=== PATIENT | female | born 1945 | race American Indian/Alaskan Native ===

== ENCOUNTER 2017-07-08 08:27 | Outpatient (CLI) | payer MEDICARE ==
--- NOTE | 2017-07-08 09:07 | XRay Report ---
XRAY LEFT KNEE 4 THREE VIEWS: 07/08/17 CLINICAL: Left knee pain. FINDINGS: Mild osteopenia. Osteoarthritis of the medial joint space with loss of the joint space and large osteophytes. Slight widening of the lateral joint space with small osteophytes. Patellofemoral osteophytes and joint space narrowing. No fracture or dislocation.No joint effusion.Normal soft tissues. IMPRESSION: Osteoarthritis with greatest involvement of the medial knee joint space and patellofemoral joint.
== END 2017-07-08 08:28 | disposition home or self-care (01) ==
LOC: SPVIMAG 08:27
PROVIDERS: ATTEND Orthopaedic Surgery Sports Medicine
DX: M17.12 Unilateral primary osteoarthritis, left knee (principal); M85.862 Other specified disorders of bone density and structure, left lower leg

== ENCOUNTER 2020-02-06 06:25 | Day surgery (SDC) | payer MEDICARE ==
[2020-02-06] MEDS ORDERED: SODIUM CHLORIDE 0.9% 500 ML 500 ML ONE (07:05)
[2020-02-06] MEDS ORDERED: ASPIRIN EC 325 MG TAB PO ONE ×2 (07:05→08:00)
[2020-02-06] MEDS: SODIUM CHLORIDE 0.9% 500 ML 500 ML IV SCH ×2 (07:22→08:45)
[2020-02-06] MEDS ORDERED: MIDAZOLAM 2 MG/2 ML INJ ONE (08:12)
[2020-02-06] MEDS ORDERED: HEPARIN/NS 5000 UNIT/500ML 1,000 ML IR ONE (08:12)
[2020-02-06] MEDS ORDERED: fentaNYL 100 MCG/2 ML INJ ONE (08:13)
[2020-02-06] MEDS ORDERED: LIDOCAINE (2%) 20 MG/1 ML VIAL 20 ML MDV INFILTRATI ONE (08:13)
[2020-02-06] MEDS ORDERED: VERAPAMIL 5 MG/2 ML INJ ONE (08:13)
[2020-02-06] MEDS: HEPARIN 10,000 UNITS/10 ML VIAL ONE ×2 (09:01→09:03)
[2020-02-06] MEDS: NITROGLYCERIN SYRINGE 3 ML ONE ×2 (09:02→09:03)
--- NOTE | 2020-02-06 09:36 | Short Stay Summary ---
Short Stay Documentation Date of service: 02/06/20 - History H&P: obtained from office - Allergies and Medications Current Medications: Allergies No Known Allergies Allergy (Unverified 02/06/20 06:54) Home Medications Medication Instructions Recorded Confirmed Last Taken Type Aspirin [Adult Aspirin] 81 mg PO DAILY 02/06/20 02/06/20 02/05/20 History ISOSORBIDE MONOnitrate [Imdur ER] 30 mg PO DAILY 02/06/20 02/06/20 02/06/20 05:30 History Ipratropium (Nf) [Atrovent HFA 2 puff IH PRN PRN 02/06/20 02/06/20 Unknown History 17MCG/PUFF] Linaclotide [Linzess] 145 mcg PO QDAY 02/06/20 02/06/20 02/06/20 05:30 History Metoprolol [Lopressor] 25 mg PO DAILY 02/06/20 02/06/20 02/06/20 05:30 History Oxycodone HCl/Acetaminophen 1 each PO Q6HR PRN 02/06/20 02/06/20 02/05/20 History [Percocet 7.5/325 mg] Rosuvastatin Calcium [Crestor] 20 mg PO DAILY 02/06/20 02/06/20 02/06/20 05:30 History amLODIPine [Norvasc] 10 mg PO DAILY 02/06/20 02/06/20 02/06/20 05:30 History Active Medications Sodium Chloride (Nacl 0.9% 500 Ml) 500 mls @ 50 mls/hr IV DIRECT LEIGHANN Stop: 02/06/20 17:59 Last Admin: 02/06/20 08:45 Dose: 50 mls/hr Documented by: - Brief post op/procedure progress note Date of procedure: 02/06/20 Pre-op diagnosis: abnormal stress test Post-op diagnosis: other (nonobstructive CAD) Procedure: LHC - see dictated cath report Anesthesia: local Estimated blood loss: none Condition: stable - Disposition Condition at discharge: Good Disposition: -01 TO HOME OR SELFCARE - Discharge Diagnoses (1) 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
--- NOTE | 2020-02-06 09:49 | Cardiac Catherization Report ---
CARDIAC CATHETERIZATION REFERRING PHYSICIAN: Dr. Karen Baird MD INDICATION FOR PROCEDURE: The patient is a pleasant 74-year-old -[place] female with a history of tobacco abuse, peripheral vascular disease, dyspnea, abnormal stress test, referred for left heart catheterization. Risks, benefits, potential alternatives, explained to the patient prior to obtaining informed consent. PROCEDURE IN DETAIL: The patient brought to the cath lab radiological technologist in a postabsorptive state, prepped and draped in sterile fashion. Nicolas's test in right hand was normal. A 2 mL of 2% lidocaine used to anesthetize the right wrist. A standard 6-Urdu hydrophilic sheath used to cannulate the right radial artery via modified Seldinger technique. All exchanges performed to exchange a J-tip guidewire. JL3.5 catheter was used to engage the left main. No dampening or vegetations. Cineangiography performed in all projections. JR4 catheter used to cross the aortic valve under fluoroscopic guidance. Left ventriculography was performed in 30 [place] projections via hand injections, catheter flushed. Manual pullback performed with continuous pressure monitoring. Catheter used to engage the right coronary. No dampening or vegetations. Cineangiography performed in all projections. Next, catheter removed from the body of wire, sheath removed. Manual pressure used to achieve hemostasis. Prior to removing sheath, we did a root aortogram in the [place] projection with the power injector due to recurrent symptoms and known peripheral vascular disease and hypertension. I directly supervised the administration of moderate sedation with fentanyl and Versed from 8:55 a.m. to 9:30 a.m. DATA: Aortic pressure is 150/80, LV pressure is 150, LVP of 15 mmHg. Left ventriculography reveals normal systolic performance with estimated ejection fraction of 55-60%. No evidence of aortic stenosis. CORONARY ANATOMY: This is a right dominant system. Left main without significant disease, bifurcates in left anterior descending and left circumflex. Diffuse scattered luminal irregularities. Left main without significant disease, bifurcates in left anterior descending and left circumflex. LAD is a moderate sized vessel, courses anterior intergroove, wraps around the apex. A 25% proximal LAD stenosis, otherwise no significant disease noted. Left circumflex is a moderate sized vessel with mild diffuse ectasia noted. No obstructive disease identified. SUELLEN 3 flow throughout the left system. Right coronary is a moderate sized vessel, courses AV groove, distally bifurcates into posterior and posterolateral branches. No discrete stenoses identified, scattered luminal irregularities. Root aortography reveals normal contour, no evidence of dissection, penetrating aortic ulcer, or aortic insufficiency, normal great vessel anatomy. The patient continues to smoke. Discussed smoking cessation with the patient for some 5 minutes. CONCLUSIONS: 1. Gern-[id number] nonobstructive coronary artery disease in this right dominant system, 25% proximal left anterior descending stenosis and itli-tm-[id number] ectasia in the circumflex system, but again, no obstructive disease identified. SUELLEN 3 flow throughout the coronary tree. Normal left ventricular systolic performance, estimated ejection fraction of 55-60%. 2. No evidence of aortic stenosis. 3. Normal LVEDP. 4. Root aortography without evidence of dissection, penetrating aortic ulcer, or aortic insufficiency. Aggressive risk factor modification, tobacco abuse, cessation discussed. Standard radial care. Results of procedure explained to the patient and her daughter, Edwina via telephone. She will return for peripheral vascular angiography electively given claudicant symptoms. Continue current medications including Imdur, statin and beta blockade, will be on a baby aspirin as well. Follow up with Dr. Baird in the office. JOB# [id number] SBM/NTS
[2020-02-06 15:16] VITALS: BP 127/72
== END 2020-02-06 13:00 | disposition home or self-care (01) ==
LOC: CATHLABREC 06:25
PROVIDERS: ATTEND Internal Medicine
DX: R94.39 Abnormal result of other cardiovascular function study (principal); R06.09 Other forms of dyspnea; I25.10 Atherosclerotic heart disease of native coronary artery without angina pectoris; F17.210 Nicotine dependence, cigarettes, uncomplicated; I73.9 Peripheral vascular disease, unspecified; E78.00 Pure hypercholesterolemia, unspecified; I10 Essential (primary) hypertension; J45.909 Unspecified asthma, uncomplicated; M19.90 Unspecified osteoarthritis, unspecified site; Z96.652 Presence of left artificial knee joint; Z79.899 Other long term (current) drug therapy; Z79.82 Long term (current) use of aspirin; Z98.890 Other specified postprocedural states
CPT/HCPCS: 93005; 93458; 93567; 99156; 99157; C1894; J1644; J2250; J3010; J7040; Q9967

== ENCOUNTER 2020-02-28 05:55 | Day surgery (SDC) | payer MEDICARE ==
[2020-02-28 07:03] LABS: Basophils % (Auto) 0.3 % (0.0-1.8); Eosinophils # (Auto) 0.1 K/mm3 (0.0-0.4); Eosinophils % (Auto) 1.2 % (0.0-4.3); Hematocrit 36.7 % (30.3-42.9); Hemoglobin 12.2 gm/dl (10.1-14.3); Lymphocytes % (Auto) 36.2 % (13.4-35.0); Mean Corpuscular HGB Conc 33 % (30-34); Mean Corpuscular Volume 90 fl (79-97); Monocytes # (Auto) 0.7 K/mm3 (0.0-0.8); Monocytes % (Auto) 11.9 % (0.0-7.3); Platelet Count 161 K/mm3 (140-440); Red Blood Count 4.08 M/mm3 (3.65-5.03); Red Cell Distribution Width 14.5 % (13.2-15.2)
[2020-02-28 07:14] LABS: Blood Urea Nitrogen 9 mg/dL (7-17); Calcium 9.5 mg/dL (8.4-10.2); Hemolysis Index 5; Partial Thromboplastin Time 32.2 Sec. (24.2-36.6)
[2020-02-28 07:30] LABS: BUN/Creatinine Ratio 18
[2020-02-28] MEDS: SODIUM CHLORIDE 0.9% 500 ML 500 ML IV SCH ×2 (07:46→08:35)
[2020-02-28] MEDS ORDERED: HEPARIN/NS 5000 UNIT/500ML 1,000 ML IR ONE (08:09)
[2020-02-28] MEDS ORDERED: VERAPAMIL 5 MG/2 ML INJ ONE (08:10)
[2020-02-28] MEDS: MIDAZOLAM 2 MG/2 ML INJ ONE ×2 (08:29→08:40)
[2020-02-28] MEDS: fentaNYL 100 MCG/2 ML INJ ONE ×2 (08:29→08:40)
[2020-02-28] MEDS: LIDOCAINE (2%) 20 MG/1 ML VIAL 20 ML MDV INFILTRATI ONE ×3 (08:34→08:42)
[2020-02-28] MEDS: HEPARIN 10,000 UNITS/10 ML VIAL ONE ×3 (08:34→08:50)
[2020-02-28] MEDS: NITROGLYCERIN SYRINGE 3 ML ONE ×3 (08:35→08:50)
--- NOTE | 2020-02-28 09:24 | Cardiac Catherization Report ---
PERIPHERAL ANGIOGRAM REFERRING PHYSICIAN: Dr. Karen Baird INDICATION FOR PROCEDURE: The patient has known peripheral vascular disease, claudication, referred for abdominal aortography and distal abdominal aortography with computerized lower extremity runoff. PROCEDURE IN DETAIL: The patient was brought to the laboratory secretary in a postoperative state, prepped and draped in sterile fashion. Nicolas's test of the left hand is normal. A standard 6-Persian sheath used to cannulate the left radial artery via modified Seldinger technique. Pigtail catheter was placed into the proximal abdominal aorta, root aortography is performed with power injector/DSA. Next, catheter was moved distally to the distal abdominal aorta and peripheral angiography was performed with computerized runoff all the way to the feet. Next, catheter was removed from the body of wire, sheath removed. Manual pressure used to achieve hemostasis. There were no immediate complications identified. I directly supervised the administration of moderate sedation with fentanyl and Versed from 8:30 a.m. to 9:05 a.m. FINDINGS: The abdominal aorta is unremarkable, mild atheroma is noted. Patent renal arteries. No aneurysm. There is mild disease in the right common iliac approximately 20% nonocclusive left and right internal and external iliacs without disease. Common femoral arteries bilaterally are patent. The right SFA with 30-40% stenosis in the mid segment. Left SFA has 70-80% stenosis in the mid segment. Popliteals are patent bilaterally. The patient has thready but patent 1-2 vessel runoff inferior popliteal. The patient tolerated the procedure well. There were no immediate complications. Start Pletal aggressive medical management. If the patient fails this, we will consider TAX STAFF ACCOUNTANT of left SFA. Follow up with Dr. Karen Baird in the office. Aggressive primary and secondary prevention measures discussed. Standard right and left radial care discussed with the patient and family. All questions and concerns were addressed. JOB# [id number] SBM/NTS
[2020-02-28 13:18] VITALS: BP 140/70
--- NOTE | 2020-02-28 14:13 | Short Stay Summary ---
Short Stay Documentation Date of service: 02/28/20 - History H&P: obtained from office - Allergies and Medications Current Medications: Allergies No Known Allergies Allergy (Unverified 02/06/20 06:54) Home Medications Medication Instructions Recorded Confirmed Last Taken Type Aspirin [Adult Aspirin] 81 mg PO DAILY 02/06/20 02/28/20 02/27/20 History ISOSORBIDE MONOnitrate [Imdur ER] 30 mg PO DAILY 02/06/20 02/28/20 02/27/20 History Ipratropium (Nf) [Atrovent HFA 2 puff IH PRN PRN 02/06/20 02/28/20 Unknown History 17MCG/PUFF] Linaclotide [Linzess] 145 mcg PO QDAY 02/06/20 02/28/20 02/27/20 History Metoprolol [Lopressor] 25 mg PO DAILY 02/06/20 02/28/20 02/27/20 History Oxycodone HCl/Acetaminophen 1 each PO Q6HR PRN 02/06/20 02/28/20 02/27/20 History [Percocet 7.5/325 mg] Rosuvastatin Calcium [Crestor] 20 mg PO DAILY 02/06/20 02/28/20 02/27/20 History amLODIPine [Norvasc] 10 mg PO DAILY 02/06/20 02/28/20 02/28/20 04:30 History cilostazoL [Pletal] 50 mg PO BID #60 tablet 02/28/20 Unknown Rx - Brief post op/procedure progress note Date of procedure: 02/28/20 Pre-op diagnosis: PVD Post-op diagnosis: same Procedure: peripheral angiogram - see dictated cath report Anesthesia: local Estimated blood loss: none Condition: stable - Disposition Condition at discharge: Good Disposition: DC-01 TO HOME OR SELFCARE - Discharge Diagnoses (1) PVD (peripheral vascular disease) Status: Chronic Short Stay Discharge Plan Activity: advance as tolerated Diet: low fat, low cholesterol, low salt Wound: open to air, keep clean and dry, per your surgeon's advice Follow up with: YU SIMONS MD [Staff Physician] - 7 Days MERCEDES HERNANDEZ MD [Primary Care Provider] - 7 Days Forms: Post Arteriogram Instruct Prescriptions: cilostazoL [Pletal] 50 mg PO BID #60 tablet
== END 2020-02-28 13:15 | disposition home or self-care (01) ==
LOC: CATHLABREC 05:55
PROVIDERS: ATTEND Internal Medicine
DX: I70.213 Atherosclerosis of native arteries of extremities with intermittent claudication, bilateral legs (principal); I74.5 Embolism and thrombosis of iliac artery; I25.10 Atherosclerotic heart disease of native coronary artery without angina pectoris; E78.00 Pure hypercholesterolemia, unspecified; I10 Essential (primary) hypertension; J45.909 Unspecified asthma, uncomplicated; F17.210 Nicotine dependence, cigarettes, uncomplicated; M19.90 Unspecified osteoarthritis, unspecified site; Z98.890 Other specified postprocedural states; Z79.82 Long term (current) use of aspirin; Z79.899 Other long term (current) drug therapy; Z96.652 Presence of left artificial knee joint
CPT/HCPCS: 36200; 36415; 75630; 80048; 85025; 85610; 85730; 99156; 99157; C1894; J1644; J2250; J3010; J7040; 75625; 75716; Q9967